=== PATIENT | male | born 1990 | race Caucasian/White ===

== ENCOUNTER 2017-04-17 01:26 | Emergency (ER) | payer OTHER ==
[~2017-04-17] VITALS: Ht 180.3 cm; Wt 75.0 kg
[~2017-04-17 01:26] MED LIST: FOLI1 PO; THIA100T PO
[2017-04-17 01:34] VITALS: BP 112/66; PULSE 94; RESP 18; TEMP 98.1; O2SAT 92
[2017-04-17 01:40] VITALS: O2SAT 96
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
[2017-04-17 02:01] LABS: AUTOMATED NEUTROPHIL # 2.8 TH/MM3 (1.8-7.7); BACTERIA, URINE RARE /hpf; BASOPHIL # 0.2 TH/MM3 (0-0.2); BASOPHIL % 2.7 % (0.0-2.0); BLOOD, URINE MOD (NEG); COMMENT (UR) CULT NOT INDICATED; CULTURE IF INDICATED CULT NOT INDICATED; EOSINOPHIL # 0.4 TH/MM3 (0-0.4); EOSINOPHIL % 5.9 % (0.0-4.0); GLUCOSE,URINE NEG (NEG); HEMATOCRIT 43.5 % (39.0-51.0); HEMO FLAGS DIFF FINAL; KETONE, URINE NEG (NEG); LYMPH % 37.8 % (9.0-44.0); LYMPHOCYTE # 2.6 TH/MM3 (1.0-4.8); MEAN CELL VOLUME 97.9 FL (80.0-100.0); MEAN CORPUSCULAR HEMOGLOBIN 33.3 PG (27.0-34.0); MONO % 11.9 % (0.0-8.0); MUCUS URINE FEW /lpf (OCC); NEUT % 41.7 % (16.0-70.0); NITRITE,URINE NEG (NEG); PH, URINE 5.5 (5.0-8.5); PLATELET COUNT 298 TH/MM3 (150-450); RED BLOOD COUNT 4.45 MIL/MM3 (4.50-5.90); RED CELL DISTRIBUTION WIDTH 12.8 % (11.6-17.2); URINE COLOR LIGHT-YELLOW (YELLW/STRAW); WHITE BLOOD COUNT 6.8 TH/MM3 (4.0-11.0)
[2017-04-17 02:12] LABS: INTERNATIONAL NORMALIZED RATIO 0.9 RATIO; PROTHROMBIN TIME - PATIENT 10.3 SEC (9.8-11.6)
[2017-04-17 02:13] LABS: BICARBONATE 24.4 MEQ/L (21.0-32.0); POTASSIUM 3.7 MEQ/L (3.5-5.1)
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
[2017-04-17 06:02] VITALS: BP 117/78; PULSE 87; RESP 18; O2SAT 99
== END 2017-04-17 08:30 | disposition home or self-care (01) ==
LOC: NEPE 01:26
DX: F14.920 Cocaine use, unspecified with intoxication, uncomplicated (principal); S40.212A Abrasion of left shoulder, initial encounter; V49.69XA Unspecified car occupant injured in collision with other motor vehicles in traffic accident, initial encounter; Z72.0 Tobacco use
CPT/HCPCS: 70450; 71010; 72125; 72170; 80048; 80307; 81001; 85025; 85610; 85730; 99285